=== PATIENT | female | born 1975 | race Caucasian/White ===

== ENCOUNTER → 2019-05-11 | Outpatient (CLI) | payer BC ==
[~2019-05-11] MED LIST: B COTAB3 PO; GASTROGRAFIN SOLUTION 30ML (Q9963) As Ordered ONE; ISOVUE-370 76% 100ML VIAL (Q9967) As Ordered ONE; NO ITAB PO; PROT1TAB2 PO; VITA500T PO
--- NOTE | 2019-05-12 08:12 | REP ---
Clinical: Pancreatitis. Technique: Axial precontrast, arterial phase, portal venous phase, and delayed phase images of the abdomen using oral and 100 ml Isovue 370 intravenous contrast material with coronal and sagittal re-formations. Findings: The pancreas is normal in all phases of evaluation and no significant peripancreatic inflammatory stranding, fluid, abscess or pseudocyst is appreciated. The gallbladder is unremarkable and there is no evidence for pericholecystic fluid or biliary ductal dilatation. The liver demonstrates a focal area of low density adjacent to the falciform ligament which may represent focal fatty changes. Spleen, bilateral adrenal glands and kidneys are normal. Visualized in enteric system is unremarkable. No ascites. No free air. No adenopathy. Abdominal aorta appears normal. Musculoskeletal structures are intact. Impression: Essentially normal pre and postcontrast CT of the abdomen without CT evidence of acute pancreatitis or biliary pathology. Electronically Signed by Rashad Shannon MD 05/12/2019 08:04 A
== END ==
LOC: M RAD 16:17
PROVIDERS: ATTEND Surgery
DX: K85.10 Biliary acute pancreatitis without necrosis or infection (principal)
CPT/HCPCS: 74170; Q9963; Q9967

== ENCOUNTER 2019-05-17 09:05 | Day surgery (SDC) | payer BC ==
[~2019-05-17] VITALS: Ht 175.3 cm; Wt 7.7 kg
[~2019-05-17 09:05] MED LIST changes: -GASTROGRAFIN SOLUTION 30ML (Q9963) As Ordered ONE; -ISOVUE-370 76% 100ML VIAL (Q9967) As Ordered ONE; +LIDOCAINE 1% MDV 20ML VIAL SQ PRN; +LR 1,000 ML IV ONE; +ceFAZolin SOD 1 GM in D5W MINI-BAG PLUS 50 ML IV ONE
[2019-05-17] MEDS ORDERED: PROPOFOL 200 MG/20 ML VIAL As Ordered ONE (10:21)
[2019-05-17] MEDS ORDERED: ROCURONIUM BROMIDE 50 MG/5 ML VIAL As Ordered ONE (10:21)
[2019-05-17] MEDS ORDERED: dexameTHASONE 4 MG/ML 1ML VIAL (J1100) As Ordered ONE (10:22)
[2019-05-17] MEDS ORDERED: LIDOCAINE 2% INJ 100 MG/5 ML SDV (FOR ANES.) As Ordered ONE (10:22)
[2019-05-17] MEDS ORDERED: SUGAMMADEX SODIUM 500 MG/5 ML VIAL (BRIDION) As Ordered ONE (10:22)
[2019-05-17] MEDS ORDERED: fentaNYL 250 MCG/5 ML INJECTION (J3010) As Ordered ONE (10:22)
[2019-05-17] MEDS ORDERED: ONDANSETRON 4MG/2ML VIAL (J2405) As Ordered ONE ×2 (10:22→10:31)
[2019-05-17] MEDS ORDERED: MIDAZOLAM INJ 2 MG/2 ML VIAL (J2250) As Ordered ONE (10:22)
[2019-05-17] MEDS ORDERED: KETOROLAC 60 MG/2 ML VIAL (J1885) As Ordered ONE (10:22)
[2019-05-17] MEDS ORDERED: BUPIVACAINE/EPIN 0.25% 30 ML VIAL As Ordered ONE (10:53)
[2019-05-17] MEDS ORDERED: ACETAMINOPHEN 1000MG 100ML IV BTL (OFIRMEV) (J0131 PER 10MG) As Ordered ONE (12:05)
[2019-05-17] MEDS ORDERED: NORCO, ANEXSIA 5/325MG TABLET (HYDROcodone/ACETAMINOPHEN) PO PRN (13:15)
[2019-05-17] MEDS ORDERED: ONDANSETRON 4MG/2ML VIAL (J2405) IV PRN ×2 (13:15)
[2019-05-17] MEDS ORDERED: fentaNYL 100 MCG/2 ML INJECTION (J3010) IV PRN (13:15)
[2019-05-17] MEDS ORDERED: PERCOCET 5MG/325MG TAB PO PRN (13:15)
[2019-05-17] MEDS ORDERED: LR 1,000 ML IV SCH ×2 (13:15)
[2019-05-17 14:30] VITALS: BP 106/61
== END 2019-05-17 14:40 | disposition home or self-care (01) ==
LOC: M SDC 09:05
PROVIDERS: ATTEND Surgery
DX: K80.10 Calculus of gallbladder with chronic cholecystitis without obstruction (principal); K21.9 Gastro-esophageal reflux disease without esophagitis; Z79.899 Other long term (current) drug therapy
CPT/HCPCS: 47563; 88304; J0131; J0690; J1100; J1885; J2250; J2405; J3010